=== PATIENT | female | born 1955 | race Caucasian/White ===

== ENCOUNTER 2018-07-07 23:21 | Observation (INO) | payer OTHER ==
[2018-07-08] MEDS ORDERED: Aspirin 325 mg EC Tablets PO STA (00:11)
--- NOTE | 2018-07-08 00:11 | C.PDOC ---
History Of Present Illness patient presents with 2 days of intermittent chest pain, dull, pressure, non radiating. Speaking in complete sentences, No f/c/n/v. Time Seen by Provider: 07/08/18 00:10 Chief Complaint (Nursing): Chest Pain History Per: Patient History/Exam Limitations: no limitations Onset/Duration Of Symptoms: Days Current Symptoms Are (Timing): Still Present Context: Other Severity: Moderate Pain Scale Rating Of: 4 Quality: Dull, Tightness Associated Symptoms: denies: Nausea Modifying Factors: None Exacerbating Factors: None Alleviating Factors: None Recent travel outside of the [place]: No Additional History Per: Patient Past Medical History Reviewed: Historical Data, Nursing Documentation, Vital Signs Vital Signs: Last Vital Signs Temp 98.2 F 07/07/18 23:33 Pulse 98 H 07/07/18 23:33 Resp 20 07/07/18 23:33 BP 157/76 H 07/07/18 23:33 Pulse Ox 99 07/08/18 01:25 - Medical History PMH: HTN Family History: States: No Known Family Hx - Social History Hx Alcohol Use: No Hx Substance Use: No Review Of Systems Constitutional: Negative for: Fever, Chills Eyes: Negative for: Redness ENT: Negative for: Throat Pain Cardiovascular: Positive for: Chest Pain Respiratory: Negative for: Shortness of Breath Gastrointestinal: Negative for: Nausea, Vomiting, Abdominal Pain Genitourinary: Negative for: Dysuria Musculoskeletal: Negative for: Back Pain Skin: Negative for: Rash Neurological: Negative for: Weakness Psych: Negative for: Anxiety Physical Exam - Physical Exam Appears: Non-toxic, No Acute Distress Skin: Warm, Dry Head: Normacephalic Eye(s): bilateral: Normal Inspection Oral Mucosa: Moist Neck: Supple Chest: Symmetrical Cardiovascular: Rhythm Regular Gastrointestinal/Abdominal: Soft, No Tenderness, No Distention Back: Normal Inspection Extremity: Normal ROM Extremity: Bilateral: Atraumatic Pulses: Left Dorsalis Pedis: Normal, Right Dorsalis Pedis: Normal Neurological/Psych: Oriented x3 Gait: Steady ED Course And Treatment - Laboratory Results Result Diagrams: 07/08/18 00:20 07/08/18 00:20 ECG: Interpreted By Me, Viewed By Me ECG Rhythm: Sinus Rhythm (99), Nonspecific Changes O2 Sat by Pulse Oximetry: 99 Pulse Ox Interpretation: Normal - Radiology CXR: Interpreted by Me, Viewed By Me CXR Interpretation: No: Infiltrates, Fracture, Pnemothorax Disposition Discussed With Dr.: Renan Estevez Comment: accepted the patient onhis service and took over the care at 1:58 AM Doctor Will See Patient In The: ED Counseled Patient/Family Regarding: Studies Performed, Diagnosis - Disposition Disposition: HOSPITALIZED Disposition Time: 00:11 Condition: FAIR Forms: [facility] (German) - POA Present On Arrival: Poor Glycemic Control - Clinical Impression Clinical Impression: Chest pain Decision To Admit - Pt Status Changed To: Hospital Disposition Of: Inpatient - Admit Certification Admit to Inpatient:: After my assessment, the patient will require hospitalization for at least two midnights. This is because of the severity of symptoms shown, intensity of services needed, and/or the medical risk in this patient being treated as an outpatient. - InPatient: Physician Admission Certification: I certify that this patient requires 2 or more midnights of care for the following reason:: After my assessment, the patient will require hospitalization for at least two midnights. This is because of the severity of symptoms shown, intensity of services needed, and/or the medical risk in this patient being treated as an outpatient. - . Bed Request Type: Telemetry Admitting Physician: Renan Estevez Patient Diagnosis: Chest pain
[2018-07-08 00:23] LABS: BASO % 0.4 % (0.0-2.0); EOS # 0.2 K/uL (0.0-0.7); EOS % 1.9 % (0.0-4.0); HEMOGLOBIN 12.9 g/dL (11.0-16.0); LYMPH # 2.2 K/uL (1.0-4.3); LYMPH % 21.9 % (20.0-40.0); MEAN CELL VOLUME 77.4 fL (81.0-99.0); MEAN CORPUSCULAR HEMOGLOBIN 26.5 pg (27.0-31.0); MEAN CORPUSCULAR HGB CONC 34.2 g/dL (33.0-37.0); MEAN PLATELET VOLUME 9.9 fL (7.2-11.7); MONO # 0.6 K/uL (0.0-0.8); MONO % 6.2 % (0.0-10.0); NEUT % 69.6 % (50.0-75.0); NRBC % 0.1 % (0.0-2.0); RBC 4.89 Mil/uL (3.80-5.20); RED CELL DISTRIBUTION WIDTH 14.9 % (11.5-14.5)
[2018-07-08 00:36] LABS: ALB/GLOB RATIO 1.2 (1.0-2.1)
[2018-07-08] MEDS ORDERED: Aspirin 325 mg EC Tablets PO ONE (00:41)
[2018-07-08 00:47] LABS: SQUAMOUS EPITHIAL < 1 /hpf (0-5); URINE BILIRUBIN NEGATIVE (NEGATIVE); URINE BLOOD NEGATIVE (NEGATIVE); URINE CLARITY Clear (Clear); URINE COLOR Colorless (YELLOW); URINE GLUCOSE (UA) NORMAL (Normal); URINE LEUKOCYTE ESTERASE 1+ Leu/uL (Negative); URINE PROTEIN NEGATIVE (NEGATIVE); URINE UROBILINOGEN NORMAL mg/dL (0.2-1.0)
[2018-07-08 00:51] LABS: ALBUMIN 4.7 g/dL (3.5-5.0); ALT/SGPT 30 U/L (9-52); AST/SGOT 39 U/L (14-36); BLOOD UREA NITROGEN 8 mg/dL (7-17); CALCIUM 9.6 mg/dl (8.6-10.4); GFR AFRICAN-AMERICAN > 60; GFR NON-AFRICAN AMERICAN > 60
[2018-07-08 01:25] LABS: INR 1.1; PROTHROMBIN TIME 12.3 SECONDS (9.7-12.2)
--- NOTE | 2018-07-08 06:04 | CP.PCM.HP ---
<Jin Duarte - Last Filed: 07/08/18 06:06> History of Present Illness - History of Present Illness History of Present Illness: 62yo F with a PMH of HTN presents to the ED with a 2 day history of non- radiating dull constant epigastric abdominal pain, Pt reports this pain is constant and has not been getting better. Pt does not associate this pain with eating or any specific activity, she says it has been unremitting for two days. Pt says it was an acute onset and has not had a pain like this before in her past. Pt denies any reflux or positional change associated with the pain. ROS: denies chest pain, n/v, f/c, diarrhea, urinary changes, migrating/ raditaing pains, headaches, dizziness, loss of vision, SOB, Cough PMH: HTN Psx: non Social denies smoking, ETHOH and drug use Family Hx: mom CVA allergies: denies Present on Admission - Present on Admission Any Indicators Present on Admission: No Review of Systems - Constitutional Constitutional: absent: Excessive Sweating, Fever, Frequent Falls, Headache, Night Sweats, Weight Gain, Weight Loss, Weakness - EENT Eyes: absent: Blind Spots, Blurred Vision, Loss of Vision Nose/Mouth/Throat: absent: Mouth Pain, Throat Swelling, Facial Pain, Neck Pain - Cardiovascular Cardiovascular: absent: Chest Pain, Chest Pain at Rest, Dyspnea on Exertion, Pain Radiating to Arm/Neck/Jaw, Leg Edema, Leg Ulcers, Pedal Edema, Radiating Pain, Syncope - Respiratory Respiratory: absent: Cough, Dyspnea, Dyspnea on Exertion - Gastrointestinal Gastrointestinal: Abdominal Pain. absent: Change in Bowel Habits, Change in Stool Character, Constipation, Dysphagia, Loose Stools, Melena, Nausea - Genitourinary Genitourinary: absent: Change in Urinary Stream, Difficulty Urinating, Urinary Urgency - Musculoskeletal Musculoskeletal: As Per HPI - Integumentary Integumentary: As Per HPI - Neurological Neurological: As Per HPI - Psychiatric Psychiatric: As Per HPI - Endocrine Endocrine: As Per HPI Past Patient History - Past Social History Smoking Status: Never Smoked - CARDIAC Hx Hypertension: Yes - PSYCHIATRIC Hx Substance Use: No Meds Allergies/Adverse Reactions: Allergies Allergy/AdvReac Type Severity Reaction Status Date / Time No Known Allergies Allergy Verified 07/07/18 23:33 Physical Exam - Constitutional Appears: Non-toxic - Head Exam Head Exam: ATRAUMATIC, NORMAL INSPECTION - Eye Exam Eye Exam: EOMI, Normal appearance - ENT Exam ENT Exam: Mucous Membranes Moist - Neck Exam Neck exam: Positive for: Normal Inspection - Respiratory Exam Respiratory Exam: NORMAL BREATHING PATTERN. absent: Accessory Muscle Use, Wheezes, Respiratory Distress - Cardiovascular Exam Cardiovascular Exam: RRR, +S1, +S2 - GI/Abdominal Exam GI & Abdominal Exam: Normal Bowel Sounds, Soft. absent: Rigid, Tenderness - Extremities Exam Extremities exam: Negative for: calf tenderness, joint swelling, pedal edema, tenderness - Back Exam Back exam: NORMAL INSPECTION - Neurological Exam Neurological exam: Alert, CN II-XII Intact, Oriented x3 - Psychiatric Exam Psychiatric exam: Normal Affect, Normal Mood - Skin Skin Exam: Normal Color, Warm Results - Vital Signs Recent Vital Signs: Last Vital Signs Temp 98.2 F 07/07/18 23:33 Pulse 98 H 07/07/18 23:33 Resp 20 07/07/18 23:33 BP 157/76 H 07/07/18 23:33 Pulse Ox 99 07/08/18 01:58 - Labs Result Diagrams: 07/08/18 00:20 07/08/18 00:20 Labs: Laboratory Results - last 24 hr 07/08/18 07/08/18 07/08/18 00:20 00:20 00:48 WBC 10.0 RBC 4.89 Hgb 12.9 Hct 37.8 MCV 77.4 L MCH 26.5 L MCHC 34.2 RDW 14.9 H Plt Count 228 MPV 9.9 Neut % (Auto) 69.6 Lymph % (Auto) 21.9 [place] % (Auto) 6.2 Eos % (Auto) 1.9 Baso % (Auto) 0.4 Neut # (Auto) 7.0 Lymph # (Auto) 2.2 [place] # (Auto) 0.6 Eos # (Auto) 0.2 Baso # (Auto) 0.0 PT INR APTT Sodium 141 Potassium 3.7 Chloride 100 Carbon Dioxide 23 Anion Gap 21 H BUN 8 Creatinine 0.6 L Est GFR ( Amer) > 60 Est GFR (Non-Af Amer) > 60 Random Glucose 184 H Calcium 9.6 Total Bilirubin 0.6 AST 39 H ALT 30 Alkaline Phosphatase 99 Troponin I < 0.0120 NT-Pro-B Natriuret Pep 62.0 Total Protein 8.5 H Albumin 4.7 Globulin 3.8 Albumin/Globulin Ratio 1.2 Urine Color Colorless Urine Clarity Clear Urine pH 6.0 Ur Specific Sixes 1.001 L Urine Protein Negative Urine Glucose (UA) Normal Urine Ketones Negative Urine Blood Negative Urine Nitrate Negative Urine Bilirubin Negative Urine Urobilinogen Normal Ur Leukocyte Esterase 1+ H Urine WBC (Auto) 1 Urine RBC (Auto) 1 Ur Squamous Epith Cells < 1 07/08/18 01:11 WBC RBC Hgb Hct MCV MCH MCHC RDW Plt Count MPV Neut % (Auto) Lymph % (Auto) Nicollet % (Auto) Eos % (Auto) Baso % (Auto) Neut # (Auto) Lymph # (Auto) [place] # (Auto) Eos # (Auto) Baso # (Auto) PT 12.3 H INR 1.1 APTT 33 Sodium Potassium Chloride Carbon Dioxide Anion Gap BUN Creatinine Est GFR ( Amer) Est GFR (Non-Af Amer) Random Glucose Calcium Total Bilirubin AST ALT Alkaline Phosphatase Troponin I NT-Pro-B Natriuret Pep Total Protein Albumin Globulin Albumin/Globulin Ratio Urine Color Urine Clarity Urine pH Ur Specific Sixes Urine Protein Urine Glucose (UA) Urine Ketones Urine Blood Urine Nitrate Urine Bilirubin Urine Urobilinogen Ur Leukocyte Esterase Urine WBC (Auto) Urine RBC (Auto) Ur Squamous Epith Cells Assessment & Plan - Assessment and Plan (Free Text) Assessment: Abdominal Pain -r/o [place] -EKG: non specific T wave changes -trops neg x1 -f/u second trop -ASA 325mg PO -Observation HTN: -monitor BP -f/u trops -neg bnp <Renan Estevez P - Last Filed: 07/08/18 06:43> Results - Vital Signs Recent Vital Signs: Last Vital Signs Temp 98.2 F 07/07/18 23:33 Pulse 98 H 07/07/18 23:33 Resp 20 07/07/18 23:33 BP 157/76 H 07/07/18 23:33 Pulse Ox 99 07/08/18 01:58 - Labs Result Diagrams: 07/08/18 00:20 07/08/18 00:20 Labs: Laboratory Results - last 24 hr 07/08/18 07/08/18 07/08/18 00:20 00:20 00:48 WBC 10.0 RBC 4.89 Hgb 12.9 Hct 37.8 MCV 77.4 L MCH 26.5 L MCHC 34.2 RDW 14.9 H Plt Count 228 MPV 9.9 Neut % (Auto) 69.6 Lymph % (Auto) 21.9 Nicol[place] % (Auto) 6.2 Eos % (Auto) 1.9 Baso % (Auto) 0.4 Neut # (Auto) 7.0 Lymph # (Auto) 2.2 Nicol[place] # (Auto) 0.6 Eos # (Auto) 0.2 Baso # (Auto) 0.0 PT INR APTT Sodium 141 Potassium 3.7 Chloride 100 Carbon Dioxide 23 Anion Gap 21 H BUN 8 Creatinine 0.6 L Est GFR ( Amer) > 60 Est GFR (Non-Af Amer) > 60 Random Glucose 184 H Calcium 9.6 Total Bilirubin 0.6 AST 39 H ALT 30 Alkaline Phosphatase 99 Troponin I < 0.0120 NT-Pro-B Natriuret Pep 62.0 Total Protein 8.5 H Albumin 4.7 Globulin 3.8 Albumin/Globulin Ratio 1.2 Urine Color Colorless Urine Clarity Clear Urine pH 6.0 Ur Specific Sixes 1.001 L Urine Protein Negative Urine Glucose (UA) Normal Urine Ketones Negative Urine Blood Negative Urine Nitrate Negative Urine Bilirubin Negative Urine Urobilinogen Normal Ur Leukocyte Esterase 1+ H Urine WBC (Auto) 1 Urine RBC (Auto) 1 Ur Squamous Epith Cells < 1 07/08/18 01:11 WBC RBC Hgb Hct MCV MCH MCHC RDW Plt Count MPV Neut % (Auto) Lymph % (Auto) Nicollet % (Auto) Eos % (Auto) Baso % (Auto) Neut # (Auto) Lymph # (Auto) [place] # (Auto) Eos # (Auto) Baso # (Auto) PT 12.3 H INR 1.1 APTT 33 Sodium Potassium Chloride Carbon Dioxide Anion Gap BUN Creatinine Est GFR ( Amer) Est GFR (Non-Af Amer) Random Glucose Calcium Total Bilirubin AST ALT Alkaline Phosphatase Troponin I NT-Pro-B Natriuret Pep Total Protein Albumin Globulin Albumin/Globulin Ratio Urine Color Urine Clarity Urine pH Ur Specific Sixes Urine Protein Urine Glucose (UA) Urine Ketones Urine Blood Urine Nitrate Urine Bilirubin Urine Urobilinogen Ur Leukocyte Esterase Urine WBC (Auto) Urine RBC (Auto) Ur Squamous Epith Cells Attending/Attestation - Attestation I have personally seen and examined this patient.: Yes I have fully participated in the care of the patient.: Yes I have reviewed all pertinent clinical information: Yes Notes (Text): Assessment C/o epigastric gas pain radiating to mid chest, post dinner last night, for about 10-15 min, improved when reached to hospital, no complains related to exertion, last night or prior, non specific T flattening or inversion in all leads, mom had stroke in early age. Plan Serial troponin Possible out patient stress test with PMD. See orders for detail.
[2018-07-08 10:06] VITALS: RESP 20; O2SAT 97
[2018-07-08 10:39] LABS: LIPASE 84 U/L (23-300)
--- NOTE | 2018-07-08 14:56 | US ---
Date of service: 07/08/2018 HISTORY: abdominal pain COMPARISON: None. TECHNIQUE: Sonographic evaluation of the abdomen. FINDINGS: LIVER: Measures 16.8 cm. Increased echogenicity of the liver parenchyma. No mass. No intrahepatic bile duct dilatation. GALLBLADDER: Unremarkable. No gallstones. COMMON BILE DUCT: Measures 6 mm. No stones. No dilatation. PANCREAS: The pancreas is partially obscured by overlying bowel gas. RIGHT KIDNEY: Measures 8.2 x 3.6 x 4.2cm. Normal echogenicity. No calculus, mass, or hydronephrosis. LEFT KIDNEY: Measures 8.9 x 3.8 x 3.2cm. Normal echogenicity. No calculus, mass, or hydronephrosis. SPLEEN: Normal in size and contour. No mass. AORTA: No aneurysmal dilatation. IVC: Unremarkable. OTHER FINDINGS: None. IMPRESSION: No evidence of cholelithiasis or cholecystitis. Mildly heterogeneous and echogenic liver suggestive of mild hepatic steatosis.
[2018-07-08 15:01] LABS: CK-MB 2.18 ng/mL (0.0-3.38)
[2018-07-08] MEDS ORDERED: Bisacodyl 5mg EC Tab PO ONE (15:23)
[2018-07-08 16:01] VITALS: BP 146/75; PULSE 70; TEMP 98.1
--- NOTE | 2018-07-08 19:58 | CP.PCM.DIS ---
Provider - Provider Date of Admission: 07/08/18 01:57 Attending physician: Renan Estevez MD Time Spent in preparation of Discharge (in minutes): 45 Diagnosis - Discharge Diagnosis (1) Chest pain Status: Resolved Hospital Course - Lab Results Lab Results: Most Recent Lab Values WBC 10.0 K/uL (4.8-10.8) 07/08/18 00:20 RBC 4.89 Mil/uL (3.80-5.20) 07/08/18 00:20 Hgb 12.9 g/dL (11.0-16.0) 07/08/18 00:20 Hct 37.8 % (34.0-47.0) 07/08/18 00:20 MCV 77.4 fL (81.0-99.0) L 07/08/18 00:20 MCH 26.5 pg (27.0-31.0) L 07/08/18 00:20 MCHC 34.2 g/dL (33.0-37.0) 07/08/18 00:20 RDW 14.9 % (11.5-14.5) H 07/08/18 00:20 Plt Count 228 K/uL (130-400) 07/08/18 00:20 MPV 9.9 fL (7.2-11.7) 07/08/18 00:20 Neut % (Auto) 69.6 % (50.0-75.0) 07/08/18 00:20 Lymph % (Auto) 21.9 % (20.0-40.0) 07/08/18 00:20 [place] % (Auto) 6.2 % (0.0-10.0) 07/08/18 00:20 Eos % (Auto) 1.9 % (0.0-4.0) 07/08/18 00:20 Baso % (Auto) 0.4 % (0.0-2.0) 07/08/18 00:20 Neut # (Auto) 7.0 K/uL (1.8-7.0) 07/08/18 00:20 Lymph # (Auto) 2.2 K/uL (1.0-4.3) 07/08/18 00:20 [place] # (Auto) 0.6 K/uL (0.0-0.8) 07/08/18 00:20 Eos # (Auto) 0.2 K/uL (0.0-0.7) 07/08/18 00:20 Baso # (Auto) 0.0 K/uL (0.0-0.2) 07/08/18 00:20 PT 12.3 SECONDS (9.7-12.2) H 07/08/18 01:11 INR 1.1 07/08/18 01:11 APTT 33 SECONDS (21-34) 07/08/18 01:11 Sodium 141 mmol/L (132-148) 07/08/18 00:20 Potassium 3.7 mmol/L (3.6-5.2) 07/08/18 00:20 Chloride 100 mmol/L (98-107) 07/08/18 00:20 Carbon Dioxide 23 mmol/L (22-30) 07/08/18 00:20 Anion Gap 21 (10-20) H 07/08/18 00:20 BUN 8 mg/dL (7-17) 07/08/18 00:20 Creatinine 0.6 mg/dL (0.7-1.2) L 07/08/18 00:20 Est GFR ( Amer) > 60 07/08/18 00:20 Est GFR (Non-Af Amer) > 60 07/08/18 00:20 Random Glucose 184 mg/dL (65-105) H 07/08/18 00:20 Calcium 9.6 mg/dl (8.6-10.4) 07/08/18 00:20 Total Bilirubin 0.6 mg/dL (0.2-1.3) 07/08/18 00:20 AST 39 U/L (14-36) H 07/08/18 00:20 ALT 30 U/L (9-52) 07/08/18 00:20 Alkaline Phosphatase 99 U/L (38-126) 07/08/18 00:20 Total Creatine Kinase 268 U/L (30-135) H 07/08/18 14:29 CK-MB (Mass) 2.18 ng/mL (0.0-3.38) 07/08/18 14:29 Troponin I < 0.0120 ng/mL (0.00-0.120) 07/08/18 14:29 NT-Pro-B Natriuret Pep 62.0 pg/mL (0-900) 07/08/18 00:20 Total Protein 8.5 g/dL (6.3-8.3) H 07/08/18 00:20 Albumin 4.7 g/dL (3.5-5.0) 07/08/18 00:20 Globulin 3.8 gm/dL (2.2-3.9) 07/08/18 00:20 Albumin/Globulin Ratio 1.2 (1.0-2.1) 07/08/18 00:20 Lipase 84 U/L (23-300) 07/08/18 07:00 Urine Color Colorless (YELLOW) 07/08/18 00:48 Urine Clarity Clear (Clear) 07/08/18 00:48 Urine pH 6.0 (5.0-8.0) 07/08/18 00:48 Ur Specific Williams 1.001 (1.003-1.030) L 07/08/18 00:48 Urine Protein Negative mg/dL (NEGATIVE) 07/08/18 00:48 Urine Glucose (UA) Normal mg/dL (Normal) 07/08/18 00:48 Urine Ketones Negative mg/dL (NEGATIVE) 07/08/18 00:48 Urine Blood Negative (NEGATIVE) 07/08/18 00:48 Urine Nitrate Negative (NEGATIVE) 07/08/18 00:48 Urine Bilirubin Negative (NEGATIVE) 07/08/18 00:48 Urine Urobilinogen Normal mg/dL (0.2-1.0) 07/08/18 00:48 Ur Leukocyte Esterase 1+ Trae/uL (Negative) H 07/08/18 00:48 Urine WBC (Auto) 1 /hpf (0-5) 07/08/18 00:48 Urine RBC (Auto) 1 /hpf (0-3) 07/08/18 00:48 Ur Squamous Epith Cells < 1 /hpf (0-5) 07/08/18 00:48 - Hospital Course Hospital Course: ROS: denies chest pain, n/v, f/c, diarrhea, urinary changes, migrating/ raditaing pains, headaches, dizziness, loss of vision, SOB, Cough PMH: HTN Psx: non Social denies smoking, ETHOH and drug use Family Hx: mom CVA Allergies: denies Upon Admission: 62yo F with a PMH of HTN presents to the ED with a 2 day history of non- radiating dull constant epigastric abdominal pain, Pt reports this pain is constant and has not been getting better. Pt does not associate this pain with eating or any specific activity, she says it has been unremitting for two days. Pt says it was an acute onset and has not had a pain like this before in her past. Pt denies any reflux or positional change associated with the pain. Hospital Course: Patient is a 62 yo F who presents to the hospital for constant epigastric/chest pain. CINHTIA x3 was negative; Abdomen U/S was negative for any acute abnormalities ; Patient was given dulcolax 1x for constipation; Patient was discharged to follow up with special service officer outpatient Discharge Plan: The patient is stable for discharge to home as per Dr. Willoughby. Patient is instructed to followup with her special service officer who she sees outpatient within 1 week of discharge. Patient is to resume all of her home medications as no adjustments to her medications were made on this admission. Patient should return to the hospital if symptoms recur or worsen. Patient understands then plan and agrees to above. Disclaimer: Written above is a synopsis of patient's current hospital admission. For full report refer to EMR Discharge Exam - Head Exam Head Exam: ATRAUMATIC, NORMAL INSPECTION Discharge Plan - Follow Up Plan Condition: FAIR Disposition: HOME/ ROUTINE Instructions: Constipation, Adult (DC), Chest Pain (DC) Additional Instructions: Please follow up with Dr. Faustina Ferrari Referrals: Zandra Ferrari MD [Staff Provider] -
--- NOTE | 2018-07-08 21:16 | RAD ---
Date of service: 07/08/2018 PROCEDURE: CHEST RADIOGRAPH, 1 VIEW HISTORY: chest pain COMPARISON: None available. FINDINGS: LUNGS: Clear. PLEURA: No pneumothorax or pleural fluid seen. CARDIOVASCULAR: Normal. OSSEOUS STRUCTURES: No significant abnormalities. VISUALIZED UPPER ABDOMEN: Normal. OTHER FINDINGS: None. IMPRESSION: No active disease.
[2018-07-10] MEDS ORDERED: Pneumococcal 23-Valent Vaccine IM ONE (10:00)
== END 2018-07-08 16:24 | disposition home or self-care (01) ==
LOC: C.ER 23:21 → C.9E 07-08 01:57 → C.5S 07-08 08:54
PROVIDERS: ADMIT Internal Medicine; ATTEND Internal Medicine
DX: R07.9 Chest pain, unspecified (principal); I10 Essential (primary) hypertension; Z79.82 Long term (current) use of aspirin
CPT/HCPCS: 71045; 76700; 80053; 81001; 83690; 83880; 84484; 85025; 85610; 85730; 99285; G0378